=== PATIENT | male | born 1940 | race Caucasian/White ===

== ENCOUNTER 2022-08-05 12:35 | Outpatient (CLI) | payer MEDICARE, SELFPAY ==
--- NOTE | 2022-08-05 12:30 | RT.EKG_ITS ---
APPROVED REPORT Exam: Resting ECG Reason for Exam: cardiac evaluation Patient Location: O HR:124 bpm ECG Measurements Heart Rate 124 AXIS [place] [id number] P [id number] QRSd 83 QRS 53 QT 345 T 13 QTc 496 Conclusion Atrial fibrillation...V-rate 73-155, irreg A-activity Left ventricular hypertrophy with repolarization abnormalities
== END 2022-08-05 12:36 | disposition home or self-care (01) ==
LOC: DI.CARD 12:36
PROVIDERS: Visit Provider Internal Medicine Cardiovascular Disease
DX: I42.9 Cardiomyopathy, unspecified (principal); I48.91 Unspecified atrial fibrillation; R94.31 Abnormal electrocardiogram [ECG] [EKG]
CPT/HCPCS: 93010

== ENCOUNTER → 2022-08-05 12:54 | Outpatient (BNVA) | payer MEDICARE, SELFPAY | PROVIDERS: Visit Provider Internal Medicine Cardiovascular Disease | DX: I42.9 Cardiomyopathy, unspecified (principal); I48.21 Permanent atrial fibrillation; Z98.890 Other specified postprocedural states | CPT/HCPCS: 93005; 99203 ==

== ENCOUNTER → 2022-09-16 12:25 | Outpatient (BNVA) | payer MEDICARE, SELFPAY | PROVIDERS: Visit Provider Internal Medicine Cardiovascular Disease | DX: I48.91 Unspecified atrial fibrillation (principal); I42.8 Other cardiomyopathies; Z98.890 Other specified postprocedural states | CPT/HCPCS: 99213 ==

== ENCOUNTER 2022-12-30 00:36 | Outpatient (CLI) | payer MEDICARE, SELFPAY ==
--- OUTSIDE RECORDS SUMMARY | 2022-12-30 00:37 | XMS_ITS | CCD ---
Author Name Unknown Address [address] [place] [address] [id number] Organization Unknown Address [address], [place] [id number] Care Team Providers Care Tacking Machine Operator Name Role Phone JAIMEE ISAACS Attending Physician [phone] JAIMEE ISAACS Rounding (Secondary) Physici an [phone] Vital Signs Unknown or Not Available. Allergies Allergy Code Allergy Type Reaction Status No Known Food Allergies 0 No known food allergies Active No Known Drug Allergies 0 No known drug allergies Active Procedures Unknown or Not Available. History of Immunizations Unknown or Not Available. Problems Unknown or Not Available. Results Unknown or Not Available. Active Medications Unknown or Not Available. Medications Administered During Visit Unknown or Not Available. Encounters Encounter Diagnosis Diagnosis Code Start Date Pain in right shoulder [id number] Social History Smoking Status Code Start Date End Date Former smoker [id number] Patient Decision Aids Unknown or Not Available. Discharge Instructions You were admitted to [facility] on 10/21/2022 08:13 with a principal diagnosis of Pain in right shoulder You were discharged from [facility] on 10/21/2022 00:00 Should you have any questions prior to discharge, please contact a member of your healthcare team. If you have left the hospital and have any questions, please contact your primary care physician. Chief Complaint and Reason For Visit Unknown or Not Available. Function Status Unknown or Not Available. Plan of Care Unknown or Not Available. Referral/Transition of Care Unknown or Not Available.
--- OUTSIDE RECORDS SUMMARY | 2022-12-30 00:38 | XMS_ITS | CCD ---
Author Name Unknown Address [address] [place] [address] [phone] Organization Unknown Address [address] [place], [place] [id number] Care Team Providers Care Coverstitch Machine Operator Name Role Phone SIERRA ALMAGUER Attending Physician [phone] Vital Signs Unknown or Not Available. Allergies [...] Encounters Encounter Diagnosis Diagnosis Code Start Date Abdominal aortic aneurysm, without rupture, unsp ecified [id number] 11/17/2022 Social History Smoking Status Code Start Date End Date Former smoker [id number] Patient Decision Aids Unknown or Not Available. Discharge Instructions You were admitted to [facility] on 11/17/2022 10:46 with a principal diagnosis of Abdominal aortic aneurysm, without rupture, unspecified You were discharged from [facility] on 11/17/2022 10:46 Should you have any questions prior to [...]
--- OUTSIDE RECORDS SUMMARY | 2022-12-30 00:38 | XMS_ITS | CCD ---
Author Name Unknown Address [address] [place] [address] [phone] Organization Unknown Address [address] [place] [address] [phone] Care Team Providers Care Biostatistics Manager Name Role Phone VIOLETA OLMSTEAD Attending Physician [phone] VIOLETA OLMSTEAD Rounding (Secondary) Physician [phone] Vital Signs Unknown or Not Available. Allergies [...] Encounters Encounter Diagnosis Diagnosis Code Start Date Other specific arthropathies , not elsewhere classified, right shoulder [id number] 12/06/2022 Social History Smoking Status Code Start Date End Date Former smoker [id number] Patient Decision Aids Unknown or Not Available. Discharge Instructions You were admitted to [facility] on 12/06/2022 07:44 with a principal diagnosis of Other specific arthropathies, not elsewhere classified, right shoulder You were discharged from [facility] on 12/06/2022 00:00 Should you have any questions prior [...]
--- NOTE | 2022-12-30 10:30 | DI.US_ITS ---
APPROVED REPORT EXAM: Comprehensive 2D, Doppler, and color-flow Echocardiogram Conclusion Normal left ventricular wall thickness and chamber size. Left ventricular systolic function appears mildly to moderately reduced, though determination is difficult given atrial fibrillation and beat to beat variation. No segmental wall motion abnormalities are identified Right ventricle appears grossly normal in size and diffusely hypocontractile Left atrial size is normal. 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 Mitral leaflets are thickened. There is mild to moderate mitral regurgitation Normal tricuspid valve with moderate to severe regurgitation. Estimated right ventricular systolic p ressure is 23 mmHg Wall motion Left Ventricle The left ventricle is normal size. Left ventricular systolic function is moderate to severely decreas ed. There is normal left ventricular wall thickness. There is global hypokinesis of the left ventricl e. There is no ventricular septal defect visualized. LVEF is 30-35%. Right Ventricle Right ventricle is grossly normal in size. Right ventricle is hypokinetic. The RVSP is 22.8 mmHg. Atria The left atrium size is normal. Right atrium is mildly dilated. The interatrial septum is intact with no evidence for an atrial septal defect. Aortic Valve The aortic valve is sclerotic Aortic valve is trileaflet. There is no aortic valvular stenosis. Mild aortic regurgitation. Mitral Valve Mildly thickened mitral leaflets Evidence of prior mitral valve repair with annuloplasty ring Mild t o moderate mitral regurgitation. Tricuspid Valve The tricuspid valve is normal in structure. There is no tricuspid valve stenosis. Moderate to severe tricuspid regurgitation. Pulmonic Valve The pulmonary valve is normal in structure. There is no pulmonic valvular stenosis. Mild pulmonic reg urgitation. Great Vessels Aortic root is mildly dilated. Ascending aorta is not well visualized. Aortic arch is not well visual ized. IVC is normal in size and collapses >50% with inspiration. Pericardium There is no pericardial effusion. 2D Dimensions IVSD d PLAX 0.61 cm M: 0.6-1.2 LV Vol A2C d MOD 109.2 mL LVPW d PLAX 0.58 cm M: 0.6 - 1.2 LV Vol A4C d MOD 90.8 mL LVID d PLAX 4.88 cm M: 4.2 - 5.8 LA vol/ BSA A4C s A-L 28.5 mL/m2 LVDs 4.20 cm M: 2.5 - 4.0 LA Area A4C s MOD 16.67 cm2 Ao Root d 3.96 cm M: 3.1 - 3.7 LV EF A4C MOD 28.8 % LV EF Teichholz 28.4 % LV EF A2C MOD 30.8 % LVEF (Carpenter's) 31.52 % M: 52 - 72 LV EF Biplane MOD 31.5 % LV Volume 80.78 mL M: 62 - 150 SV 32.09 mL LV Volume Index 47.51 mL/m2 M: 34 - 74 SV Index 18.84 mL/m2 LV Vol Biplane MOD 101.8 mL FS 13.25 % M-Mode TAPSE 1.28 cm (M/F) >1.7 LV Diastology MV E Vmax 0.75 (0.4-1.3 m/s) Aortic Valve LVOT Area 3.85 cm2 AoV Area Vmax 3.17 cm2 LVOT Vmax 0.76 m/s AoV Area/ BSA (Vmax) 1.86 cm2/m2 LVOT Mean Alverto. 0.46 m/s SCOOTER Mean Alverto. 2.70 cm2 LVOT Peak Grad 2.3 mmHg SCOOTER Mean Alverto. Index 1.59 cm2/m2 LVOT Mean Grad 1.1 mmHg AR DT 2714 msec LVOT VTI 0.140 m AR PHT 787 msec LVOT Diam s 2.20 cm AoV Vmax 0.92 m/s Velocity Ratio 0.83 AoV Mean Alverto. 0.66 m/s AoV Peak Grad 3.4 mmHg LVOT SV 53.89 mL AoV Mean Grad 1.9 mmHg AoV VTI 0.155 m AoV Area VTI 3.47 cm2 AoV Area/ BSA (VTI) 2.04 cm/m2 Mitral Valve MV DT 160 (160-240 msec) MR Vmax 4.21 m/s MV PHT 46 msec MR VTI 1.312 m MV Area PHT 4.74 cm2 MR Peak Grad 71.0 mmHg MV VTI 0.227 m MR Mean Grad 47.7 mmHg MV Area VTI 2.37 (4.0-6.0 cm2) Pulmonary Valve PV Vmax 0.82 (0.5-1.5 m/s) RVOT Peak Gr. 0.50 mmHg PV Peak Grad 2.7 mmHg RVOT Mean Gr. 0.25 mmHg PV Mean Grad 1.4 mmHg RVOT VTI 0.052 m PV VTI 0.091 m RVOT Vmax 0.35 m/s Tricuspid Valve TR Peak Grad 19.7 mmHg TR Vmax 2.22 m/s RA Pressure 3.00 mmHg RVSP (TR) 22.8 mmHg
== END 2022-12-30 00:56 ==
PROVIDERS: Visit Provider Internal Medicine Cardiovascular Disease
DX: I42.9 Cardiomyopathy, unspecified (principal); I48.91 Unspecified atrial fibrillation; Z98.890 Other specified postprocedural states
CPT/HCPCS: 93306

== ENCOUNTER → 2023-01-13 13:11 | Outpatient (BNVA) | payer MEDICARE, SELFPAY | PROVIDERS: Visit Provider Internal Medicine Cardiovascular Disease | DX: I48.91 Unspecified atrial fibrillation (principal); Z79.01 Long term (current) use of anticoagulants; Z98.890 Other specified postprocedural states; I42.9 Cardiomyopathy, unspecified | CPT/HCPCS: 99214 ==

== ENCOUNTER → 2023-01-23 10:35 | Outpatient (BNVA) | payer MEDICARE, SELFPAY | PROVIDERS: Visit Provider Internal Medicine Cardiovascular Disease | DX: R06.09 Other forms of dyspnea (principal); Z98.890 Other specified postprocedural states; I42.9 Cardiomyopathy, unspecified; I48.91 Unspecified atrial fibrillation; Z79.01 Long term (current) use of anticoagulants; I72.3 Aneurysm of iliac artery | CPT/HCPCS: 99214 ==

== ENCOUNTER → 2023-04-13 13:41 | Outpatient (BNVA) | payer MEDICARE, SELFPAY | PROVIDERS: Visit Provider Internal Medicine Cardiovascular Disease | DX: Z79.01 Long term (current) use of anticoagulants (principal); I48.91 Unspecified atrial fibrillation; I42.9 Cardiomyopathy, unspecified; Z98.890 Other specified postprocedural states | CPT/HCPCS: 99214; 99213 ==

== ENCOUNTER 2023-08-03 10:56 | Outpatient (CLI) | payer MEDICARE, SELFPAY ==
--- NOTE | 2023-08-03 11:15 | RT.EKG_ITS ---
APPROVED REPORT Exam: Resting ECG Reason for Exam: followup Patient Location: O HR:100 bpm ECG Measurements Heart Rate 100 [place]IS [place] [id number] P [id number] QRSd 83 QRS 36 QT 387 T -73 QTc 500 Conclusion Atrial fibrillation...V-rate 70-128, irreg A-activity Borderline prolonged QT interval...QTc >475mS I have reviewed and interpreted ECG and agree with software generated interpretation.
== END 2023-08-03 10:57 | disposition home or self-care (01) ==
LOC: DI.CARD 11:25
PROVIDERS: Visit Provider Internal Medicine Interventional Cardiology
DX: I48.91 Unspecified atrial fibrillation (principal)
CPT/HCPCS: 93010

== ENCOUNTER 2023-08-03 11:52 | Inpatient (IN) | payer MEDICARE, SELFPAY ==
[2023-08-03] VITALS (35 sets, daily range): BP systolic 85–125; BP diastolic 30–80; PULSE 55–157; RESP 15–29; TEMP 35.8–36.5; O2SAT 95–100
--- NOTE | 2023-08-03 12:00 | RT.EKG_ITS ---
APPROVED REPORT Exam: Resting ECG Reason for Exam: syncope/weakness Patient Location: E HR:80 bpm ECG Measurements Heart Rate 80 AXIS MD [id number] P [id number] QRSd 88 QRS 62 QT 408 T -44 QTc 470 Conclusion Atrial fibrillation...V-rate 57- 97, irreg A-activity Probable LVH with secondary repol abnrm...multiple LVH criteria Rate controlled atrial fibrillation at a rate of 80. Normal axis. QTc within normal limits. No isc hemic changes. T wave flattening in aVL. No acute ST segment abnormalities. Compared to prior date d earlier today no acute injury pattern.
[2023-08-03 12:27] LABS: Abs Immature Grans 0.06 10^3/uL (0.0-0.06); Absolute Basophil Count 0.06 10^3/uL (0.0-0.2); Absolute Eosinophil Count 0.13 10^3/uL (0.0-0.7); Absolute Lymphocyte Count 2.14 10^3/uL (1.2-3.4); Absolute Neutrophil Count 5.87 10^3/uL (1.2-6.7); Basophils % 0.6; Eosinophils % 1.4; HCT 45.3 % (40.0-50.0); HGB 14.7 g/dL (13.5-17.5); Immature Grans % 0.6; Lymphocytes % 22.9; MCH 30.4 pg (27.0-33.0); MCHC 32.5 % (32.0-36.0); MCV 94 fL (80-95); MPV 10.4 fL (8.0-11.0); Monocytes % 11.8; Neutrophils % 62.7; Platelet Count 187 10^3/uL (130-400); RBC 4.84 10^6/uL (4.36-5.78); RDW 12.1 % (11.8-14.1); WBC 9.36 10^3/uL (4.4-10.8)
--- NOTE | 2023-08-03 12:30 | ED.GENADUL_ITS ---
HPI General Stated Complaint: [id number] YOMAIRA: 3 Date/Time Provider Initiated Documentation: 08/03/23 12:14. HPI Narrative: MDM This is an overall very well-appearing normothermic and not tachycardic 83-year-old male with permanent atrial fibrillation and weakness at cardiology clinic with reported atrial fibrillation with slow ventricular response with rates in the 40s for which cardiology advised pacemaker. Patient does not appear volume overloaded so no indication for diuresis. No syncope however the patient has been having episodes of presyncope. He had an echo performed last year showing low EF. He reports being adherent with his metoprolol. Given his history of permanent atrial fibrillation he will require pacemaker placement given tachybradycardia syndrome. 1:17 PM I spoke to [facility] transfer center and they will have cardiology call me back. Magnesium normal. CBC lacks anemia thrombocytopenia and leukocytosis. Negative initial troponin. Normal reassuring basic metabolic panel with no prior for comparison. No acute electrolyte abnormalities. Mildly elevated proBNP. Normal TSH. Chest x-ray read as unremarkable. 4 PM I spoke to Randall Lovett from cards at [facility] [place]. Denys Zabala accepting for tomorrow [place] level of care. He advised holding metoporol and hold rivarxaban. No indication for bridging anticoagulation. I was in talks with Dr. Gonzalez from the hospitalist team who graciously accepted the patient for hospitalization locally at [facility] overnight. Chronic conditions affecting the care of the patient: Atrial fibrillation History obtained from an outside historian: Patient's External record review: [facility] E[facility] [Diagnostic interpretations performed by me: Per my independent interpretation chest x-ray shows: No acute cardiopulmonary process Per my independent interpretation EKG shows: Rate controlled atrial fibrillation at a rate of 80. Normal axis. QTc within normal limits. No ischemic changes. T wave flattening in aVL. No acute ST segment abnormalities. Compared to prior dated earlier today no acute injury pattern. Medications: N/A Social determinants of health affecting disposition: N/A Management discussed with: Cardiology at [facility] and cardiology at [facility] Treatment/interventions considered: N/A Response to therapies provided: N/A HPI This is an 83-year-old male with a history of permanent atrial fibrillation on rivaroxaban and metoprolol arrived to the emergency department in the setting of symptomatic bradycardia. He was with outpatient cardiology today and had a blood pressure of 97/57 and had a heart rate in the 40s. He has felt lightheaded and nearly syncopal several times in the last week. He has been adherent with his metoprolol. He has felt some presyncope. He has had no leg swelling no shortness of breath. No paroxysmal nocturnal dyspnea. He does have some dyspnea on exertion. He denies routine tobacco, ethanol, and illicits. No recent fevers or chills. Exam General: Well-appearing in no acute distress speaking in complete sentences. Head: Normocephalic, atraumatic. Eye:[Pupils equal, round reactive to light.] Extraocular eye movements intact. No conjunctival injection. No scleral icterus. Ear, nose, mouth, throat: Grossly normal inspection. Normal voice, handling secretions normally. Neck: Trachea midline. Cardiovascular: Well-perfused distal extremities. irregularly irregular rhythm Respiratory: Nonlabored respiration. Clear lungs bilaterally Gastrointestinal: Nondistended abdomen. Soft nontender Musculoskeletal: No no significant lower extremity pitting soft nontender edema. Moving all 4 extremities spontaneously. Skin: Normal for age and race, grossly normal temperature and turgor. No acute rash. Neurologic: Alert and appropriate, no apparent acute deficits. Psychiatric: Mood and manner are appropriate. Grooming and personal hygiene are appropriate. Related Data Home Medications Medication Instructions Recorded Confirmed acetaminophen 500 mg tablet 500 mg PO Q6H PRN 08/03/22 08/03/23 clonazepam 1 mg tablet 1 mg PO QHS 08/03/22 08/03/23 donepezil 10 mg tablet 10 mg PO QHS 08/03/22 08/03/23 lovastatin 40 mg tablet 40 mg PO DAILY 08/03/22 08/03/23 metoprolol succinate 50 mg 50 mg PO DAILY #90 tabs 08/05/22 08/03/23 tablet,extended release 24 hr rivaroxaban 20 mg tablet (Xarelto) 20 mg PO DAILY 08/05/22 08/03/23 terbinafine HCl 250 mg tablet 250 mg PO DAILY 01/13/23 08/03/23 Previous Rx's Medication Instructions Recorded metoprolol succinate 50 mg 50 mg PO DAILY #90 tabs 08/05/22 tablet,extended release 24 hr Allergies Allergy/AdvReac Type Severity Reaction Status Date / Time No Known Allergies Allergy Verified 08/03/23 12:15 PFSH All Active Problems (Updated 08/03/23 @ 14:37 by Anastacio Morocho MD) Pre-syncope (Acute) Tachycardia-bradycardia syndrome (Acute) On deep vein thrombosis (DVT) prophylaxis (Acute) Discharge planning issues (Acute) Tachy-ernie syndrome (Acute) Iliac artery aneurysm (Acute) Status post mitral valve repair (Acute) 2019 [facility] Cardiomyopathy (Acute) Atrial fibrillation (Chronic) Surgical History Mitral valve 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 Social History Smoking/Tobacco Use Status: Former Tobacco Use Quit Date: 07/31/71 Smoking risk assessment performed?: Yes Housing: house [facility] Have you Been Recently Intoxicated or Drunk Within the Last 30 days?: No Have you Ever Experienced Previous Episodes of Alcohol Withdrawal?: No Have you ever Experienced Withdrawal Seizures?: No Have you ever Experienced Delirium Tremens(DT)s?: No Have you ever undergone Alcohol Rehabilitation Treatment (i.e, inpt ot outpatient treatment programs)?: No Have you ever Experienced Blackouts?: No Have you ever Combined Alcohol with other Downers within the last 90 days?: No Have you ever Combined Alcohol with any other Substance of Abuse during the last 90 days?: No Positive Blood Alcohol level on Presentation? [PCS.BAL]: No Evidence of Increased Autonomic Activity (i.e. HR>120, tremor, sweating, agitation, nausea)?: No Result: 0 Course Vital Signs Vital signs: Vital Signs Pulse Oximetry 97 08/03/23 12:01 Temperature 36.5 C 08/03/23 12:09 Temperature Source Oral 08/03/23 12:09 Pulse 80 08/03/23 12:09 Pulse 84 08/03/23 12:20 Respiratory Rate 20 08/03/23 12:20 Respiratory Effort Normal 08/03/23 12:12 Respiratory Depth Normal 08/03/23 12:12 Respiratory Pattern Normal 08/03/23 12:12 Blood Pressure 104/76 08/03/23 12:09 Blood Pressure Mean 86 08/03/23 12:03 Blood Pressure Position Sitting 08/03/23 12:09 Pulse Oximetry 98 08/03/23 12:20 Oxygen Delivery Method Room Air 08/03/23 12:09 Oxygen Flow Rate 0 08/03/23 12:09 Medical Decision Making Quality:SDOH Health Related Social Needs: Health related social needs risk of homeless, material hardship, food insecurity, transpo insecurity, personal safety Discharge Plan Disposition Patient Disposition: Admit to [facility] Discharge Details Clinical Impression: Tachycardia-bradycardia syndrome, Pre-syncope Admit Date/Time: 08/03/23 14:19 Admit Provider: Vincent Gonzalez Attending Provider: Vincent Gonzalez Primary Care Provider: Unknown,Unknown ED Provider: Anastacio Morocho Discharge Data Discharge Date/Time-TO BE ENTERED AT DEPARTURE: 08/03/23 15:03
--- NOTE | 2023-08-03 12:50 | DI.RAD_ITS ---
Exam(s) XR PORTABLE CHEST AP EXAM: XR PORTABLE CHEST AP CLINICAL HISTORY: Bradycardia TECHNIQUE: 2D digital imaging was performed of the chest. Two images were obtained. AP views were obtained. COMPARISON: No exams were available for comparison FINDINGS: MEDIASTINUM: Normal. HEART: Normal. PULMONARY VASCULATURE: Normal. LUNGS: Clear. PLEURAL SPACE: No pleural effusion or pneumothorax. BONE:Within normal limits for the patient's age. Sternal wires are in place. OTHER FINDINGS:Normal. IMPRESSION: No acute pulmonary findings. DATA REPOSITORY: RADIATION DOSE DELIVERED:
[2023-08-03 12:51] LABS: Anion Gap 8.6 mmol/L (3-11); BUN 15 mg/dL (7-18); CO2 27.4 mmol/L (21.0-32.0); CREATININE 1.3 mg/dL (0.70-1.30); Calcium 8.9 mg/dL (8.5-10.1); Chloride 103 mmol/L (98-107); Estimated GFR 54.85 (mL/min/1.73m2); Glucose 100 mg/dL (74-106); Magnesium 2.1 mg/dL (1.8-2.4); NT-proBNP 945 pg/mL (<300); Potassium 3.8 mmol/L (3.5-5.1); Sodium 139 mmol/L (136-145); TSH (W/Ref FT4) 3.43 uIU/mL (0.36-3.74); Troponin I < 50 ng/L (<or=60)
--- NOTE | 2023-08-03 14:19 | HPE_ITS ---
Date of service: 08/03/23 Time of Service: 16:00 Assessment and Plan Assessment and plan (1) Tachy-ernie syndrome: Status: Acute Assessment and plan: Will initiate telemetry pacer pads PRN (2) Atrial fibrillation: Status: Chronic Assessment and plan: metorprolol on hold Patient to be transferred to [facility] in AM on 08/04/22 for a pacemaker Qualifiers: Atrial fibrillation type: longstanding persistent Qualified Code(s): I 48.11 - Longstanding persistent atrial fibrillation (3) On deep vein thrombosis (DVT) prophylaxis: Status: Acute Assessment and plan: MAR[place] not a candidate for pharmacological DVT prophylaxis as patient most likely will go to [facility] for a pacemaker placemnet (4) Discharge planning issues: Status: Acute Assessment and plan: [facility] transfer for 08/04 to be arranged Does the patient need to be returned to [facility] post intervention ? F/u with CM History of Present Illness History of Present Illness Chief Complaint: Lightheadedness, weakness N arrative: This 84 years old male patient with a past medical history of atrial fibrillation on beta-jose roberto and anticoagulation, mitral valve replacement surgery, presented to the emergency room at [facility] after a cardiology appointment during which his heart rate was found to be 39. Upon arrival the patient was found to be in atrial fibrillation with slow ventricular response with rates in the 40s. Cardiology advised for pacemaker placement. There was no signs and symptoms of fluid overload in the ED; diuresis was not indicated. The patient reported having felt presyncopal intermittently for 2 days but denies actual syncopal episodes. In the ED labs were unremarkable, BNP was mildly elevated. As per the ED provider she recalls Dr. Denys Zabala from cardiology [facility] is accepting the patient for tomorrow at the level of care; advised to hold metoprolol and rivaroxaban. The hospitalist was contacted, and the patient was admitted to the medical surgical floor with telemetry overnight. On arrival to the floor, the patient denies lightheadedness, dizziness, blurred vision, headache, chest pain, palpitation, shortness of breath, abdominal discomfort, nausea, vomiting, diarrhea, dysuria. The patient reports having felt lightheaded on and off in the past couple of days but not at this time. He currently denies weakness, tiredness, fevers or night sweats. Review of Systems All systems reviewed & are unremarkable except as noted in HPI and below Constitutional Constitutional: Reports system reviewed and no additional complaints, except as documented Eyes Eyes: Reports system reviewed and no additional complaints, except as documented ENT Ears, Nose, Mouth, and Throat: Reports system reviewed and no additional complaints, except as documented Cardiovascular Cardiovascular: Reports system reviewed and no additional complaints, except as documented Respiratory Respiratory: Reports system reviewed and no additional complaints, except as documented Gastrointestinal Gastrointestinal: Reports system reviewed and no additional complaints, except as documented Genitourinary Genitourinary: Reports system reviewed and no additional complaints, except as documented Musculoskeletal Musculoskeletal: Reports system reviewed and no additional complaints, except as documented Integumentary/Breasts Skin/Breast: Reports system reviewed and no additional complaints, except as documented Neurologic Neurologic: Reports system reviewed and no additional complaints, except as documented Psychiatric Psychiatric: Reports system reviewed and no additional complaints, except as documented Endocrine Endocrine: Reports system reviewed and no additional complaints, except as documented Hematologic/Lymphatic Hematologic/Lymphatic: Reports system reviewed and no additional complaints, except as documented Allergic/Immunologic Allergic/Immunologic: Reports system reviewed and no additional complaints, except as documented PFSH All Active Problems (Updated 08/03/23 @ 14:37 by Anastacio Morocho MD) Pre-syncope (Acute) Tachycardia-bradycardia syndrome (Acute) On deep vein thrombosis (DVT) prophylaxis (Acute) Discharge planning issues (Acute) Tachy-ernie syndrome (Acute) Iliac artery aneurysm (Acute) Status post mitral valve repair (Acute) 2019 [facility] Cardiomyopathy (Acute) Atrial fibrillation (Chronic) Surgical History Mitral valve 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 Social History Smoking/Tobacco Use Status: Former Tobacco Use Quit Date: 07/31/71 Smoking risk assessment performed?: Yes Housing: house Meds Allergies and Home Medications Allergies Allergy/AdvReac Type Severity Reaction Status Date / Time No Known Allergies Allergy Verified 08/03/23 12:15 Home Medications Medication Instructions Recorded Confirmed Type acetaminophen 500 mg tablet 500 mg PO Q6H PRN 08/03/22 08/03/23 History clonazepam 1 mg tablet 1 mg PO QHS 08/03/22 08/03/23 History donepezil 10 mg tablet 10 mg PO QHS 08/03/22 08/03/23 History lovastatin 40 mg tablet 40 mg PO DAILY 08/03/22 08/03/23 History metoprolol succinate 50 mg 50 mg PO DAILY #90 tabs 08/05/22 08/03/23 Rx tablet,extended release 24 hr rivaroxaban 20 mg tablet (Xarelto) 20 mg PO DAILY 08/05/22 08/03/23 History terbinafine HCl 250 mg tablet 250 mg PO DAILY 01/13/23 08/03/23 History Exam Narrative Exam Narrative: Constitutional The patient is ambulating in room w/o distress, comfortable and cooperative during the interview, son at bedside. The patient is without acute distress HENMT: Head is normocephalic, no lymphadenopathy. Facial structures with normal appearance Eyes: Well aligned, intact ROM Neck: Normal ROM, no meningeal signs Neuro:alert and oriented to self, person, place, time and situation. No neurological focal deficit Chest:Chest is symmetrical and normal appearance Resp: Normal respiratory pattern, speaks in full sentences, unlabored breathing, clear lung bilaterally Cardio: irregular rhythm, tel HR 88, atrial fibrillation, S1, S2, no murmur, capillary refill<3 sec., bilateral radial and dorsalis pedis pulses are positive GI: Abdomen is not distended, soft and non tender, bowel sounds are present : Negative Costovertebral angle tenderness, no bladder distension Back/spine/Pelvis: No back tenderness, normal alignment Integumentary: No skin lesions or rash, right breast pain/ sensitivity on palpation w/o lesion or drainage Extremities: strength 5/5 to bilateral lower and upper extremities Psych: RASS 0, congruent mood and normal affect. Results Labs 08/03/23 12:20 08/03/23 12:20 Labs: Laboratory Results - last 24 hr 08/03/23 12:20 WBC 9.36 RBC 4.84 Hgb 14.7 Hct 45.3 MCV 94 MCH 30.4 MCHC 32.5 RDW 12.1 Plt Count 187 MPV 10.4 Immature Gran % 0.6 Neutrophils % 62.7 Lymphocytes % 22.9 Monocytes % 11.8 Eosinophils % 1.4 Basophils % 0.6 Nucleated RBC % 0.0 Absolute Neutrophils 5.87 Absolute Lymphocytes 2.14 Absolute Monocytes 1.10 H Absolute Eosinophils 0.13 Absolute Basophils 0.06 Sodium 139 Potassium 3.8 Chloride 103 Carbon Dioxide 27.4 Anion Gap 8.6 BUN 15 Creatinine 1.3 Est GFR (CKD-EPI 2020) 54.85 Glucose 100 Calcium 8.9 Magnesium 2.1 Troponin I < 50 NT-Pro-B Natriuret Pep 945 H TSH 3.43 Last Vital Signs Temp 36.5 C 08/03/23 12:09 Pulse 95 H 08/03/23 14:02 Resp 20 08/03/23 14:10 BP 119/63 08/03/23 14:02 Pulse Ox 97 08/03/23 14:10 PAWSS Pt Consumed Any Amount of Alcohol Within the Last 30 days OR had positive CHANTE Upon Admission: Yes Have you Been Recently Intoxicated or Drunk Within the Last 30 days?: No Have you Ever Experienced Previous Episodes of Alcohol Withdrawal?: No Have you ever Experienced Withdrawal Seizures?: No Have you ever Experienced Delirium Tremens(DT)s?: No Have you ever undergone Alcohol Rehabilitation Treatment (i.e, inpt ot outpatient treatment programs)?: No Have you ever Experienced Blackouts?: No Have you ever Combined Alcohol with other Downers within the last 90 days?: No Have you ever Combined Alcohol with any other Substance of Abuse during the last 90 days?: No Positive Blood Alcohol level on Presentation? [PCS.BAL]: No Evidence of Increased Autonomic Activity (i.e. HR>120, tremor, sweating, agitation, nausea)?: No Result: 0 Time Spent Time spent with Patient: >75 minutes Time was spent: preparing to see the patient(eg.review tests), obtaining and/or reviewing separately otained hiistory, ordering medications,tests, procedures, referring, communicating with other health healthcare representative, indepentently interpreting results, counseling the patient and care coordination
[2023-08-03 16:08] LABS: Troponin I < 50 ng/L (<or=60)
[2023-08-03] MEDS: Normal Saline Flush 10 ML SYR IVP (19:45)
[2023-08-03] MEDS: Donepezil 5 MG TAB 10 MG PO (21:36)
[2023-08-03] MEDS: clonazePAM 1 MG TAB PO (21:36)
[2023-08-04 06:08] VITALS: BP 102/61; PULSE 103; RESP 18; TEMP 36.1; O2SAT 97
[2023-08-04 06:34] LABS: Abs Immature Grans 0.06 10^3/uL (0.0-0.06); Absolute Basophil Count 0.04 10^3/uL (0.0-0.2); Absolute Eosinophil Count 0.17 10^3/uL (0.0-0.7); Absolute Monocyte Count 0.99 10^3/uL (0.1-0.8); Absolute Neutrophil Count 5.37 10^3/uL (1.2-6.7); Basophils % 0.5; Eosinophils % 1.9; HCT 43.2 % (40.0-50.0); HGB 14.3 g/dL (13.5-17.5); Immature Grans % 0.7; Lymphocytes % 24.1; MCH 30.4 pg (27.0-33.0); MCHC 33.1 % (32.0-36.0); MCV 92 fL (80-95); MPV 10.4 fL (8.0-11.0); Monocytes % 11.3; Neutrophils % 61.5; Platelet Count 178 10^3/uL (130-400); RBC 4.71 10^6/uL (4.36-5.78); RDW 12.1 % (11.8-14.1); RDW-SD 40.6 fL; WBC 8.73 10^3/uL (4.4-10.8)
[2023-08-04 07:22] LABS: Anion Gap 8.3 mmol/L (3-11); BUN 13 mg/dL (7-18); CO2 24.7 mmol/L (21.0-32.0); CREATININE 1.1 mg/dL (0.70-1.30); Calcium 8.8 mg/dL (8.5-10.1); Chloride 105 mmol/L (98-107); Estimated GFR 67.02 (mL/min/1.73m2); Glucose 100 mg/dL (74-106); Potassium 4.1 mmol/L (3.5-5.1); Sodium 138 mmol/L (136-145)
[2023-08-04] MEDS: Lovastatin 40 MG TAB PO (07:36)
[2023-08-04] MEDS: Normal Saline Flush 10 ML SYR IVP (07:36)
[2023-08-04] MEDS: Terbinafine 250 MG TAB PO (07:36)
[2023-08-04 07:43] VITALS: BP 103/71; PULSE 115; RESP 18; TEMP 35.9; O2SAT 97
--- NOTE | 2023-08-04 09:09 | PDOC.CMIN ---
Date of service: 08/04/23 Time of Service: 09:09 Care Management Initial Assmt Initial Assessment REASON FOR HOSPITALIZATION:: tachy-ernie syndrome PREVIOUS FUNCTIONAL STATUS/SOCIAL/FAMILY SUPPORTS:: Ady lives alone in a single family home in [place], [place]. He has 3 children who all live in the area and are close and supportive. Valentín raises [employer]. He is independent at baseline and does not receive any community services. CURRENT FUNCTIONAL STATUS:: Valentín was sitting up in bed visiting with his daughter when CM met with him. He appeared to be in good spirits and joked throughout the conversation. Valentín has been accepted for transfer to [facility] for pacemaker insertion. Valentín expressed frustration at not getting a bed at [facility] early in the day. He stated that if he could have the procedure until Monday, he would prefer to go home for the weekend and drive to [facility] on Monday. CM explained that he needs to be continuously monitored as his heart has ranged from the 40s to over 150 bpm. At [facility] if he has issues, immediate interventions are accessible, unlike at home. He stated that made sense and agreed to remain at [facility]. Later in the day a bed became available at [facility] and Valentín will be transferred this evening.. ADVANCE DIRECTIVES:: none on file Has patient been provided with info about the portal/API?: Yes Did the patient sign up for the portal?: No CODE STATUS:: Full Code INSURANCE COVERAGE / FINANCIAL ISSUES:: BC/BS Medicare Advantage POTENTIAL DISCHARGE NEEDS:: follow up with PCP and plan of care PATIENT/FAMILY EDUCATION NEEDS:: Review of discharge instructions, activity, limitations, follow up plan, discuss Ask Me Three TRANSPORTATION:: via EMS coordinated by nursing blast furnace auxiliaries supervisor PLAN:: Ady has been accepted in transfer to [facility] for pacemaker placement. He will transport via EMS coordinate by the nursing blast furnace auxiliaries supervisor and follow up with the [facility] team. REPLACED BY [facility] All Active Problems (Updated 08/03/23 @ 14:37 by Anastacio Morocho MD) Pre-syncope (Acute) Tachycardia-bradycardia syndrome (Acute) On deep vein thrombosis (DVT) prophylaxis (Acute) Discharge planning issues (Acute) Tachy-ernie syndrome (Acute) Iliac artery aneurysm (Acute) Status post mitral valve repair (Chronic) 2019 [facility] Cardiomyopathy (Acute) Atrial fibrillation (Chronic) Surgical History Mitral valve 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 Social History Smoking/Tobacco Use Status: Former Tobacco Use Quit Date: 07/31/71 Smoking risk assessment performed?: Yes Housing: house SDOH(Care Management) Screening Will the Patient Participate in the Screening?: Yes Do you worry about having a steady place to live?: no In the past 12 months, have you had to go without electric, gas, oil or water in your home?: no Have you or anyone in your house had to go without enough food to eat?: no Has lack of transportation kept you from medical appointments or from doing things needed for daily living?: no Has anyone in your support network made you feel unsafe for any reason?: no
--- NOTE | 2023-08-04 10:52 | W.PM.DS.N ---
Date of service: 08/04/23 Time of Service: 13:54 DS: Diagnosis Discharge Diagnosis (1) Tachy-troy syndrome: Status: Acute (2) Atrial fibrillation: Status: Chronic (3) Pre-syncope: Status: Acute (4) Status post mitral valve repair: Status: Chronic Discharge Plan Disposition Patient Disposition: Transfer-Acute Inpatient Care Specific Acute In Facility: [facility] Condition: Serious Discharge Details Reason For Visit: Tachy-Troy Syndrome Admit Date/Time: 08/03/23 14:19 Admit Provider: Vincent Gonzalez Attending Provider: Vincent Gonzalez Primary Care Provider: Unknown,Unknown Hospital Course Hospital Course: This 84 years old male patient with a past medical history of atrial fibrillation on beta-jose roberto and anticoagulation, mitral valve replacement, presented to the emergency room at [facility] on 08/03/23 from cardiology due to his holter moinotr after seen to his primary care during which his heart rate was found to be 39. Upon arrival the patient was found to be in atrial fibrillation with slow ventricular response with rates in the 40s. Cardiology advised for pacemaker placement. There was no signs and symptoms of fluid overload in the ED; diuresis was not indicated. The patient reported having felt presyncopal intermittently for 2 days but denies actual syncopal episodes. In the ED labs were unremarkable, BNP was mildly elevated. As per the ED provider, Dr. Denys Zabala from cardiology at [facility] is accepting the patient for the following day due to bed availability; advised to hold metoprolol and rivaroxaban. The hospitalist was contacted, and the patient was admitted to the medical surgical floor with telemetry overnight. On arrival to the floor, the patient denied lightheadedness, dizziness, blurred vision, headache, chest pain, palpitation, shortness of breath, abdominal discomfort, nausea, vomiting, diarrhea, dysuria. The patient reported having felt lightheaded intermittently in the past couple of days but not at this time. The patient denied weakness, tiredness, fevers or night sweats. During the stay the patient was kept off his metoprolol and his rivaroxaban; max heart rate in the 150's with ambulation on telemetry but in the 70's at rest; blood pressure remains stable. Home Meds and New Rx's Prescriptions: Continued clonazepam 1 mg tablet 1 mg PO QHS Rx Instructions: administer 30 minutes before bedtime lovastatin 40 mg tablet 40 mg PO DAILY donepezil 10 mg tablet 10 mg PO QHS acetaminophen 500 mg tablet 500 mg PO Q6H PRN terbinafine HCl 250 mg tablet 250 mg PO DAILY Discontinued Xarelto 20 mg tablet 20 mg PO DAILY Rx Instructions: must administer with evening meal metoprolol succinate 50 mg tablet extended release 24 hr 50 mg PO DAILY Qty: 90 3RF Discharge Instructions Stand Alone Forms: Nursing Discharge Form Activity:: Activity as Tolerated Equipment/Supplies:: No Equipment Needed Diet:: As Tolerated Discharge Orders Discharge Orders: Discharge Order (Routine); Ordered 08/04/23 Ordered By: Isis Mayfield DS: Summary Time Spent with Patient providing and/or coordinating discharge services: Greater than 30 minutes Status at Discharge Functional status at discharge: independent ambulation Overall status at discharge: patient is not back to baseline Mental Status: mental status grossly normal Speech and Movement: speech and movement normal Mood: congruent mood Affect: normal affect Quality:SDOH Health Related Social Needs: Health related social needs risk of homeless, food insecurity, transpo insecurity, material hardship, personal safety Exam Narrative Exam Narrative: Constitutional The patient is ambulating in room w/o distress, comfortable and cooperative during the interview, son at bedside. The patient is without acute distress HENMT: Head is normocephalic, no lymphadenopathy. Facial structures with normal appearance Eyes: Well aligned, intact ROM Neck: Normal ROM, no meningeal signs Neuro:alert and oriented to self, person, place, time and situation. No neurological focal deficit Chest:Chest is symmetrical and normal appearance Resp: Normal respiratory pattern, speaks in full sentences, unlabored breathing, clear lung bilaterally Cardio: irregular rhythm, tel HR up to 150's on ambulation otherwise 710's, atrial fibrillation, S1, S2, no murmur, capillary refill<3 sec., bilateral radial and dorsalis pedis pulses are positive GI: Abdomen is not distended, soft and non tender, bowel sounds are present : Negative Costovertebral angle tenderness, no bladder distension Back/spine/Pelvis: No back tenderness, normal alignment Integumentary: No skin lesions or rash, right breast pain/ sensitivity on palpation w/o lesion or drainage Extremities: strength 5/5 to bilateral lower and upper extremities Psych: RASS 0, congruent mood and normal affect. Psych Mental Status: mental status grossly normal Speech and Movement: speech and movement normal Mood: congruent mood Affect: normal affect DS: Data Vitals/I&O Vitals and I&O: Vital Signs Temperature 35.9 C L 08/04/23 07:43 Temperature Source Tympanic 08/04/23 07:43 Pulse 115 H 08/04/23 07:43 Pulse Rhythm Regular 08/04/23 07:30 Pulse 79 08/03/23 14:48 Respiratory Rate 18 08/04/23 07:43 Respiratory Effort Normal 08/04/23 07:30 Respiratory Depth Normal 08/04/23 07:30 Respiratory Pattern Normal 08/04/23 07:30 Blood Pressure 103/71 08/04/23 07:43 Blood Pressure Mean 67 08/03/23 14:48 Blood Pressure Position Sitting 08/03/23 12:09 Pulse Oximetry 97 08/04/23 07:43 Oxygen Delivery Method Room Air 08/04/23 07:43 Oxygen Flow Rate 0 08/04/23 07:43 Pain Level 0 08/04/23 07:43 Comment pt reported right chest pain and no SOB. 08/03/23 15:09 Intake & Output 08/03/23 08/03/23 08/04/23 11:59 23:59 11:59 Intake Total 120 / 120 Balance 120 / 120 Weight 34.6 kg Intake: Oral 120 / 120 Other: Urine Color Yellow Urine Appearance Clear Clear Voiding Methods Toilet Toilet Data Completed and Pending Labs on day of discharge: Labs from last 24 hours 08/04/23 08/03/23 08/03/23 06:10 15:20 12:20 WBC 8.73 9.36 RBC 4.71 4.84 Hgb 14.3 14.7 Hct 43.2 45.3 MCV 92 94 MCH 30.4 30.4 MCHC 33.1 32.5 RDW 12.1 12.1 Plt Count 178 187 MPV 10.4 10.4 Immature Gran % 0.7 0.6 Neutrophils % 61.5 62.7 Lymphocytes % 24.1 22.9 Monocytes % 11.3 11.8 Eosinophils % 1.9 1.4 Basophils % 0.5 0.6 Nucleated RBC % 0.0 0.0 Absolute Neutrophils 5.37 5.87 Absolute Lymphocytes 2.10 2.14 Absolute Monocytes 0.99 H 1.10 H Absolute Eosinophils 0.17 0.13 Absolute Basophils 0.04 0.06 Sodium 138 139 Potassium 4.1 3.8 Chloride 105 103 Carbon Dioxide 24.7 27.4 Anion Gap 8.3 8.6 BUN 13 15 Creatinine 1.1 1.3 Est GFR (CKD-EPI 2020) 67.02 54.85 Glucose 100 100 Calcium 8.8 8.9 Magnesium 2.1 Troponin I < 50 < 50 NT-Pro-B Natriuret Pep 945 H TSH 3.43 PFSH All Active Problems (Updated 08/03/23 @ 14:37 by Anastacio Morocho MD) Pre-syncope (Acute) Tachycardia-bradycardia syndrome (Acute) On deep vein thrombosis (DVT) prophylaxis (Acute) Discharge planning issues (Acute) Tachy-troy syndrome (Acute) Iliac artery aneurysm (Acute) Status post mitral valve repair (Chronic) [place] [facility] [place]omyopathy (Acute) Atrial fibrillation (Chronic) Surgical History Mitral valve 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 Social History Smoking/Tobacco Use Status: Former Tobacco Use Quit Date: 07/31/71 Smoking risk assessment performed?: Yes Housing: house Time Spent with Patient Time Spent with Patient: >85 minutes Time was spent: preparing to see the patient(eg.review tests), obtaining and/or reviewing separately otained hiistory, ordering medications,tests, procedures, referring, communicating with other health rn primary care, indepentently interpreting results, counseling the patient and care coordination
[2023-08-04 11:25] VITALS: BP 127/71; PULSE 86; RESP 17; TEMP 36.9; O2SAT 98
[2023-08-04 15:20] VITALS: BP 118/80; PULSE 70; RESP 18; TEMP 36.3; O2SAT 96
[2023-08-04] MEDS: LORazepam 0.5 MG TAB PO (17:37)
== END 2023-08-04 17:59 | disposition short-term general hospital (02) | DRG 309 ==
LOC: ER 14:46 → MS 15:06
PROVIDERS: Nurse Practitioner Acute Care; Admitting Provider Family Medicine; Emergency Provider Emergency Medicine; Visit Provider Family Medicine
DX: I49.5 Sick sinus syndrome (principal); I48.11 Longstanding persistent atrial fibrillation; Z79.01 Long term (current) use of anticoagulants; Z79.899 Other long term (current) drug therapy; Z95.4 Presence of other heart-valve replacement; R55 Syncope and collapse; I42.9 Cardiomyopathy, unspecified; Z87.891 Personal history of nicotine dependence
CPT/HCPCS: 00123; 36415; 80048; 93005; 99285; 71045; 83735; 83880; 84443; 84484; 85025; 93010; 99223; 99239

== ENCOUNTER 2023-09-06 09:11 | Outpatient (CLI) | payer MEDICARE, SELFPAY | END 2023-09-06 09:12 | disposition home or self-care (01) | LOC: DI.CARD 09:12 | PROVIDERS: Visit Provider Internal Medicine Cardiovascular Disease | CPT/HCPCS: 93010 ==

== ENCOUNTER → 2023-09-06 10:14 | Outpatient (BNVA) | payer MEDICARE, SELFPAY | PROVIDERS: Visit Provider Internal Medicine Cardiovascular Disease | DX: Z95.810 Presence of automatic (implantable) cardiac defibrillator (principal) | CPT/HCPCS: 93284 ==

== ENCOUNTER → 2024-01-03 13:56 | Outpatient (BNVA) | payer MEDICARE, SELFPAY | PROVIDERS: Visit Provider Internal Medicine Cardiovascular Disease | DX: Z95.810 Presence of automatic (implantable) cardiac defibrillator (principal) | CPT/HCPCS: 93284 ==

== ENCOUNTER 2025-01-01 08:27 | Outpatient (CLI) | payer MEDICARE, SELFPAY | END 2025-01-01 08:28 | disposition home or self-care (01) | LOC: DI.CARD 08:27 | PROVIDERS: Visit Provider Registered Nurse | DX: I48.11 Longstanding persistent atrial fibrillation (principal); Z95.810 Presence of automatic (implantable) cardiac defibrillator | CPT/HCPCS: 93010 ==

== ENCOUNTER → 2025-01-01 13:27 | Outpatient (BNVA) | payer MEDICARE, SELFPAY | PROVIDERS: Visit Provider Registered Nurse | DX: Z45.018 Encounter for adjustment and management of other part of cardiac pacemaker (principal); I48.91 Unspecified atrial fibrillation | CPT/HCPCS: 93280 ==

== ENCOUNTER 2025-04-24 11:09 | Outpatient (CLI) | payer MEDICARE, SELFPAY ==
--- NOTE | 2025-04-24 11:30 | RT.EKG_ITS ---
APPROVED REPORT Exam: Resting ECG Reason for Exam: evaluate cardiac status Patient Location: O HR:76 bpm ECG Measurements Heart Rate 76 AXIS HI 197 P 105 QRSd 89 QRS 42 QT 406 T -54 QTc 457 Conclusion Sinus rhythm...normal P axis, V-rate 50- [address]-T abnormalities ...T flat/neg, II III aVF
== END 2025-04-24 11:10 | disposition home or self-care (01) ==
LOC: DI.CARD 11:32
PROVIDERS: Visit Provider Internal Medicine Cardiovascular Disease
DX: I42.9 Cardiomyopathy, unspecified (principal); I50.20 Unspecified systolic (congestive) heart failure; I49.5 Sick sinus syndrome; Z95.810 Presence of automatic (implantable) cardiac defibrillator
CPT/HCPCS: 93010

== ENCOUNTER → 2025-04-24 11:09 | Outpatient (BNVA) | payer MEDICARE, SELFPAY | PROVIDERS: Visit Provider Internal Medicine Cardiovascular Disease | DX: I42.9 Cardiomyopathy, unspecified (principal); Z95.810 Presence of automatic (implantable) cardiac defibrillator; Z98.890 Other specified postprocedural states; I49.5 Sick sinus syndrome; I50.20 Unspecified systolic (congestive) heart failure; I48.91 Unspecified atrial fibrillation | CPT/HCPCS: 99213; 93005 ==

== ENCOUNTER → 2025-07-22 12:55 | Outpatient (BNVA) | payer MEDICARE, SELFPAY | PROVIDERS: Visit Provider Internal Medicine Cardiovascular Disease | DX: I48.11 Longstanding persistent atrial fibrillation (principal); Z98.890 Other specified postprocedural states; Z95.810 Presence of automatic (implantable) cardiac defibrillator | CPT/HCPCS: 99213 ==